=== PATIENT | female | born 1955 | race Caucasian/White ===

== ENCOUNTER 2020-06-26 11:22 | Outpatient (RCR) | payer OTHER | END 2020-07-09 | LOC: M PT 11:22 | PROVIDERS: ATTEND Orthopaedic Surgery Sports Medicine | DX: M25.561 Pain in right knee (principal) ==

== ENCOUNTER 2021-05-13 20:09 | Emergency (ER) | payer MEDICARE, OTHER ==
[~2021-05-13] VITALS: Ht 167.6 cm; Wt 65.9 kg
[2021-05-13 23:38] LABS: BASO % 0.4 % (0.0-1.0); EOS # 0.1 10^3/uL (0.0-0.5); EOS % 1.9 % (0.0-3.0); HEMOGLOBIN 15.1 g/dl (12.0-15.5); LYMPH # 1.6 10^3/uL (1.5-5.0); LYMPH % 29.9 % (24.0-44.0); MEAN CORPUSCULAR HEMOGLOBIN 31.4 pg (27.0-33.0); MEAN CORPUSCULAR HGB CONC 32.8 g/dl (32.0-36.5); MEAN CORPUSCULAR VOLUME 95.6 fl (80.0-96.0); MONO # 0.3 10^3/uL (0.0-0.8); MONO % 6.6 % (2.0-8.0); NEUTROPHILS # 3.2 10^3/uL (1.5-8.5); PLATELET COUNT, AUTOMATED 116 10^3/uL (150-450); RED BLOOD COUNT 4.81 10^6/uL (4.00-5.40); WHITE BLOOD COUNT 5.2 10^3/uL (4.0-10.0)
[2021-05-13 23:49] LABS: BLOOD UREA NITROGEN 14 MG/DL (7-18); CALCIUM LEVEL 8.6 MG/DL (8.8-10.2); CARBON DIOXIDE LEVEL 27 MEQ/L (21-32); CHLORIDE LEVEL 105 MEQ/L (98-107); CREATININE FOR GFR 0.74 MG/DL (0.55-1.30); GLOMERULAR FILTRATION RATE > 60.0 (>45); GLUCOSE, FASTING 90 MG/DL (70-100); POTASSIUM SERUM 4.4 MEQ/L (3.5-5.1); SODIUM LEVEL 139 MEQ/L (136-145)
--- NOTE | 2021-05-14 00:39 | REPVR ---
PROCEDURE INFORMATION: Exam: XR Chest Exam date and time: 05/13/2021 10:49 PM Age: 66 years old Clinical indication: Cough; Patient HX: Covid + TECHNIQUE: Imaging protocol: XR of the chest. Views: 1 view. COMPARISON: CR Chest, 2 view PA, Lat 07/07/2016 12:50 PM FINDINGS: Lungs: Clear. No consolidation. Pleural spaces: No pleural effusion. No pneumothorax. Heart/Mediastinum: Unremarkable. No cardiomegaly. Bones/joints: Unremarkable. IMPRESSION: No acute findings. Electronically signed by: Joshua Johns On 05/14/2021 00:38:25 AM
[2021-05-14 01:18] VITALS: BP 144/86
== END 2021-05-14 01:19 | disposition home or self-care (01) ==
LOC: M ED 20:09
DX: U07.1 COVID-19 (principal); Z79.899 Other long term (current) drug therapy; Z88.0 Allergy status to penicillin; Z88.2 Allergy status to sulfonamides

== ENCOUNTER 2021-05-15 08:29 | Outpatient (CLI) | payer MEDICARE, OTHER ==
--- NOTE | 2021-05-14 01:24 | CR.PDOC ---
General Date of Consultation: May 14, 2021 Consultation REASON FOR CONSULTATION/CHIEF COMPLAINT: COVID-19 HISTORY OF PRESENT ILLNESS: 66-year-old female with a past medical history hyperlipidemia and elevated triglycerides, presented to the ER with a 4-day history of shortness of breath, stomach upset, malaise and subjective fevers and chills. She tested positive for Covid 4 days ago. She denies any chest pain palpitations or lightheadedness. Patient had temperature of 100F. She is saturating at 98% on room air. Patient is otherwise without leukocytosis, and her BMP reveals normal kidney function. Patient was explained the risks and benefits of monoclonal antibodies. Patient was explained risks of anaphylaxis. Patient signed consent form. Due to staffing issues patient will return during dayshift to receive medical antibody fusion. Verbalized understanding. ALLERGIES: Please see below. HOME MEDICATIONS: Please see below. PAST MEDICAL HISTORY: Hyperlipidemia elevated triglyceride PAST SURGICAL HISTORY: Evaded triglyceride FAMILY HISTORY: Discussed with patient, no relevant family history provided SOCIAL HISTORY: Patient denies smoking Patient denies etoh use Patient denies illicit drug use REVIEW OF SYSTEMS: 10 point ROS conducted, relevant findings noted in HPI. PHYSICAL EXAMINATION: VITAL SIGNS: please see below General: NAD, comfortable HEENT: PERRLA, EOMI, sclerae clear Neck: supple, normal ROM, no JVD Respiratory: lungs CTAB, no wheeze, no rales, no crackles CVS: RRR, normal S1, S2, no murmurs Abdo: soft, no masses, no hepatosplenomegaly, BS+, no rebound tenderness Extremities: no edema, pulses 2+ MSK: no joint deformities, normal ROM Neuro: no focal neuro deficits, moving all 4 extremities, CN2-12 intact. Strength 5/5 in all 4 extremities. No nystagmus. Psych: calm, cooperative, AAO x 3 LABORATORY DATA: Please see below. ASSESSMENT/PLAN: 66-year-old female with a past medical history hyperlipidemia and elevated triglycerides, presented to the ER with a 4-day history of shortness of breath, stomach upset, malaise and subjective fevers and chills. She tested positive for Covid 4 days ago. She denies any chest pain palpitations or lightheadedness. Patient had temperature of 100F. She is saturating at 98% on room air. Patient is otherwise without leukocytosis, and her BMP reveals normal kidney function. Patient was explained the risks and benefits of monoclonal antibodies. Patient was explained risks of anaphylaxis. Patient signed consent form. Due to staffing issues patient will return during dayshift to receive medical antibody fusion. Verbalized understanding. Allergies Coded Allergies: Penicillins (Verified Allergy, Unknown, 05/13/21) Sulfa (Sulfonamide Antibiotics) (Verified Allergy, Unknown, 05/13/21) MAREK BRUSH MD May 14, 2021 01:24
[~2021-05-15] VITALS: Ht 162.6 cm; Wt 68.0 kg
[~2021-05-15 08:29] MED LIST: ACETAMINOPHEN TAB 650MG DOSE (2X325MG) PO PRN; ALBUTEROL 90 MCG/ACT 8GM HFA INHALER INH PRN; ALBUTEROL SULFATE 2.5 MG/0.5 ML INH NEB SOLN INH PRN; CASIRIVIMAB/IMDEVIMAB 1,200 MG in NS 250 ML IV ONE; EPINEPHrine INJ 1 MG/ML 1ML AMP IM PRN; NS 1,000 ML IV SCH; diphenhydrAMINE 50MG/ML VIAL (J1200) IV PRN; methylPREDNISolone 125MG 2ML VIAL IV PRN
[2021-05-15 09:22] VITALS: BP 104/71
[2021-05-15 09:52] VITALS: BP 104/71
[2021-05-15 10:23] VITALS: BP 104/60
[2021-05-15 10:58] VITALS: BP 99/63
[2021-05-15 12:10] VITALS: BP 104/57
== END 2021-05-15 12:10 | disposition home or self-care (01) ==
LOC: M MS4PR 08:29 → M OPCLI4 08:29 → M OPCLI4PR 12:10
PROVIDERS: ATTEND Family Medicine
DX: U07.1 COVID-19 (principal); Z88.0 Allergy status to penicillin; Z88.2 Allergy status to sulfonamides